=== PATIENT | male | born 1950 | race Hispanic/Latino ===

== ENCOUNTER 2024-08-07 08:29 | Emergency (ER) | payer BC ==
[~2024-08-07] VITALS: Ht 177.8 cm; Wt 131.5 kg
[2024-08-07 08:51] LABS: APPEARANCE,URINE CLEAR (CLEAR); BILIRUBIN,URINE NEGATIVE (NEGATIVE); COLOR,URINE LIGHT-YELLOW (YELLOW); GLUCOSE, URINE (UA) NEGATIVE (NEGATIVE); KETONES,URINE NEGATIVE (NEGATIVE); LEUKOCYTE ESTERASE ,URINE NEGATIVE Leu/uL (NEGATIVE); NITRATE,URINE NEGATIVE (NEGATIVE); OCCULT BLOOD,URINE NEGATIVE (NEGATIVE); PH,URINE 5.5 (5.0-8.0); PROTEIN,URINE NEGATIVE (NEGATIVE); UROBILINOGEN,URINE 0.2 mg/dL (0.2-1.0)
[2024-08-07 08:57] LABS: HEMATOCRIT 38.5 % (42-54); MEAN CORPUSCULAR HEMOGLOBIN 27.9 pg (27.0-33.0); MEAN CORPUSCULAR HGB CONC 33.5 g/dL (32.0-36.0); MEAN CORPUSCULAR VOLUME 83.3 fL (79-99); RED BLOOD CELL COUNT(AUTO) 4.62 MIL/uL (4.50-6.20); RED CELL DISTRIBUTION WIDTH 12.7 % (11.0-15.5); WHITE BLOOD COUNT (AUTO) 3.9 K/uL (4.8-10.8)
[2024-08-07 09:11] LABS: CREATININE 0.9 mg/dL (0.5-1.3); POTASSIUM 3.6 mmol/L (3.5-5.1)
[2024-08-07 09:15] LABS: ADD UA MICROSCOPIC NO
[2024-08-07] MEDS: ketOROlac 15MG/ML VIAL (15MG/ML) IV ONE (09:32)
[2024-08-07] MEDS: BACLOFEN 10 MG TABLET PO SCH (09:32)
--- NOTE | 2024-08-07 09:59 | HMCIMG ---
Exam Type: LUMBAR SPINE 2-3VWS Clinical Information: BACK PAIN Comparison: None Findings: Exam of the lumbosacral spine demonstrates no evidence of fracture or subluxation. There are moderate spondylitic changes. The facet joints show moderate degenerative changes. The alignment of the spine is normal. The disc spaces are intact. Bone mineralization is normal. Impression: Spondylitic changes and degenerative changes of the apophyseal joints as noted.
[2024-08-07] MEDS ORDERED: KETO10TA2 PO (10:22)
[2024-08-07] MEDS ORDERED: BACL10TA PO (10:22)
--- NOTE | 2024-08-07 10:22 | ERN ---
General Chief Complaint: Back Pain or Injury Stated Complaint: BACK PAIN Time Seen by MD: 08:32 History of Present Illness Initial Comments 74-year-old male came in for low back pain going on for the past two weeks. Patient states that he feels sore in left paraspinal region. Patient denies trauma fall. Patient was able to walk without any concerns. Patient denies bowel and bladder function loss. Patient also denies weakness to lower extremities. Patient was has no concerns. Allergies: Coded Allergies: No Known Drug Allergies (Unverified Allergy, Unknown, 08/07/24) Past Medical History Past Medical History: Hypertension Past Surgical History: None ROS Dictation CONSTITUTIONAL: Negative except for HPI HEAD/FACE: Negative except for HPI EENT: Negative except for HPI RESPIRATORY: Negative except for HPI GASTROINTESTINAL/ABDOMINAL: Negative except for HPI GENITOURINARY: Negative except for HPI MUSCULOSKELETAL: Negative except for HPI INTEGUMENTARY: Negative except for HPI NEUROLOGICAL/PSYCH: Negative except for HPI HEMATOLOGIC/LYMPHATIC: Negative except for HPI All Systems Negative, Except as noted above. 13 point review of systems assessed and all negative except for above. Physical Exam Physical Exam Dictation Vital Signs reviewed General Appearance: Alert, oriented x 3, no acute distress, well developed, nourished. Head and Face: non-traumatic. Eyes: PERRL, pink conjunctivas, eyelid no trauma, anterior chamber with arcus senilis. Ears: Pinnas intact and no signs of trauma or erythema ear canals clear and no discharge TM no erythema Nose: No discharge, no bleeding. Oropharynx: Mouth normal, tongue pink, pharynx clear,no erythema, tonsils no exudates, no abscesses noted, mucous membrane moist Neck: Supple, non-tender, no thyromegaly, no masses, no JVD, no bruits Breast:Deferred Chest:No tenderness, no crepitus, no paradoxical movement, no retractions Lungs:Clear, well-ventilated, symmetric, no rales, no wheezing, no rhonchi, no stridor, good breath sounds bilaterally Heart: Regular rate, regular rhythm, no murmur, no gallops Vascular: no peripheral edema, Abdomen: Soft, positive bowel sounds, nondistended, no guarding, nontender, no rebound, no masses no hepatomegaly, no splenomegaly, no Marquez's sign, no hernias. Rectal: Deferred Genital: Deferred Neurological: Normal speech, motor function intact, sensory function intact Musculoskeletal: Neck nontender, full range of motion, back nontender, full range of motion, Extremities: nontender, full range of motion Skin: Color pink, dry, no turgor, no rash, no lacerations, no abrasions, no contusions. Lymphatic: Deferred Results Laboratory and Microbiology Lab and Micro Result Laboratory Tests Test 08/07/24 08:41 08/07/24 08:47 Urine Color LIGHT-YELLOW (YELLOW) Urine Appearance CLEAR (CLEAR) Urine pH 5.5 (5.0-8.0) Urine Specific [place] 1.014 (1.001-1.031) Urine Protein NEGATIVE mg/dL (NEGATIVE) Urine Glucose (UA) NEGATIVE mg/dL (NEGATIVE) Urine Ketones NEGATIVE mg/dL (NEGATIVE) Urine Occult Blood NEGATIVE (NEGATIVE) Urine Nitrate NEGATIVE (NEGATIVE) Urine Bilirubin NEGATIVE mg/dL (NEGATIVE) Urine Urobilinogen 0.2 mg/dL (0.2-1.0) Urine Leukocyte Esterase NEGATIVE Anastasia/uL White Blood Count 3.9 K/uL (4.8-10.8) L Red Blood Count 4.62 MIL/uL (4.50-6.20) Hemoglobin 12.9 g/dL (14.0-18.0) L Hematocrit 38.5 % (42-54) L Mean Corpuscular Volume 83.3 fL (79-99) Mean Corpuscular Hemoglobin 27.9 pg (27.0-33.0) Mean Corpuscular Hemoglobin Concent 33.5 g/dL (32.0-36.0) Red Cell Distribution Width 12.7 % (11.0-15.5) Platelet Count 157 K/uL (130-400) Mean Platelet Volume 9.8 fL (7.5-10.5) Nucleated Red Blood Cells 0.0 % (0.0-0.19) Sodium Level 138 mmol/L (136-145) Potassium Level 3.6 mmol/L (3.5-5.1) Chloride Level 102 mmol/L (101-111) Carbon Dioxide Level 29 mmol/L (21-32) Blood Urea Nitrogen 13 mg/dL (7-18) Creatinine 0.9 mg/dL (0.5-1.3) Glomerular Filtration Rate Calc 89 mL/min (>90) Random Glucose 100 mg/dL (70-105) Total Calcium 8.8 mg/dL (8.5-10.1) Total Creatine Kinase 309 U/L (21-232) H MDM MDM: Differential diagnosis: There are no social concerns with this patient. Prescription drug management Prescriptions will include: Medical management and examination interpretation discussions were had by me with other qualified healthcare professionals as indicated for the patient's care. ED Course Orders Procedure Category Date Status Time Cbc Without LAB 08/07/24 Complete Differential 08:33 Basic Metabolic Panel LAB 08/07/24 Complete 08:33 Creatine Kinase, Total LAB 08/07/24 Complete 08:33 Urinalysis Profile LAB 08/07/24 Complete 08:33 Lumbar Spine 2-3vws RAD 08/07/24 Resulted 08:33 Ketorolac PHA 08/07/24 Complete Tromethamine 15mg/Ml 09:00 Baclofen (Baclofen) PHA 08/07/24 In Process 09:30 Current Medications Medications (Trade) Dose Ordered Sig/Gilbert Route PRN Reason Start Time Stop Time Status Last Admin Dose Admin Baclofen (Baclofen) 10 mg ONCE PO 08/07/24 09:30 09/06/24 09:29 08/07/24 09:32 Ketorolac Tromethamine (toRADol) 15 mg ONCE ONCE IV 08/07/24 09:00 08/07/24 09:01 DC 08/07/24 09:32 Vital Signs Date Time Temp Pulse Resp B/P (MAP) Pulse Ox O2 Delivery O2 Flow Rate FiO2 08/07/24 08:31 97.7 67 18 164/97 98 Room Air DX & DISP Disposition: Discharge Departure Impression: Primary Impression: Paraspinal muscle spasm Condition: Stable Scripts Ketorolac Tromethamine (Ketorolac Tromethamine) 10 Mg Tablet 1 TAB PO BID PRN for pain for 5 Days, #10 TAB 0 Refills Prov: GEMINI BROOKS MD 08/07/24 Baclofen (Baclofen) 10 Mg Tablet 1 TAB PO DAILY for 7 Days, #7 TAB 0 Refills Prov: GEMINI BROOKS MD 08/07/24 Referrals: OLIVIA TURNER MD (PCP) GEMINI BROOKS MD Aug 07, 2024 10:22
[2024-08-07 10:30] VITALS: BP 149/87; PULSE 60; RESP 18; TEMP 97.7; O2SAT 97
== END 2024-08-07 10:32 | disposition home or self-care (01) ==
LOC: EDH 08:29
DX: M62.830 Muscle spasm of back (principal); I10 Essential (primary) hypertension
CPT/HCPCS: 99284; 96374; 82550; 80048; 85027; 81003; 36415; 72100; J1885